=== PATIENT | male | born 1965 | race African-American/Black ===

== ENCOUNTER 2024-08-04 12:22 | Inpatient (IN) | payer OTHER ==
[2024-08-04 13:31] VITALS: BMI 24.0
[2024-08-04] MEDS ORDERED: ONDANSETRON *ODT* 4 MG TABLET SL PRN (14:20)
[2024-08-04] MEDS ORDERED: MAG HYDROX/AL HYDROX/SIMETH 30 ML UNIT-DOSE CUP PO PRN (14:20)
[2024-08-04] MEDS ORDERED: NALOXONE HCL 0.4 MG/ML VIAL IM PRN (14:20)
[2024-08-04] MEDS ORDERED: LOPERAMIDE HCL 2 MG CAPSULE PO PRN (14:20)
[2024-08-04] MEDS ORDERED: NALOXONE (NARCAN) HCL 4 MG/0.1 ML SPRAY NS PRN (14:20)
[2024-08-04] MEDS ORDERED: guaiFENesin 600 MG TABLET.ER (FP) PO PRN (14:20)
[2024-08-04] MEDS ORDERED: BENZONATATE 200 MG CAPSULE PO PRN (14:20)
[2024-08-04] MEDS ORDERED: BISMUTH SUBSALICYLATE 524 MG/30 ML PO PRN (14:20)
[2024-08-04] MEDS ORDERED: BENZOCAINE/MENTHOL (CHLORASEPTIC ) LOZENGE MM PRN (14:20)
[2024-08-04] MEDS ORDERED: hydrOXYzine PAMOATE 25 MG CAPSULE (FP) PO PRN (14:20)
[2024-08-04] MEDS ORDERED: DICYCLOMINE HCL 10 MG CAPSULE PO PRN (14:20)
[2024-08-04] MEDS ORDERED: POLYETHYLENE GLYCOL (HEALTHYLAX) 3350 17 GM PACKET PO PRN (14:20)
[2024-08-04] MEDS ORDERED: IBUPROFEN 400 MG TABLET (FP) PO PRN (14:20)
[2024-08-04] MEDS ORDERED: MAGNESIUM HYDROX 2400MG/30ML ORAL SUSPENSION 30 ML CUP PO PRN (14:20)
[2024-08-04] MEDS: PRENATAL VITAMINS W/ FOLIC ACID TABLET (FP) PO SCH (15:43)
[2024-08-04] MEDS: IBUPROFEN 600 MG TABLET (FP) PO PRN (17:54)
[2024-08-04] MEDS: MELATONIN 5 MG TABLETS PO SCH (22:35)
[2024-08-04] MEDS: METHOCARBAMOL 500 MG TABLET PO PRN (22:35)
[2024-08-04] MEDS: THIAMINE 100 MG TABLET PO SCH (22:35)
[2024-08-05] MEDS ORDERED: metFORMIN HCL 500 MG TABLET (FP) PO SCH (10:00)
[2024-08-05] MEDS: amLODIPine BESYLATE 5 MG TABLET (FP) PO SCH (10:30)
[2024-08-05] MEDS: LISINOPRIL 10 MG TABLET PO SCH (10:30)
[2024-08-05] MEDS: FOLIC ACID 1 MG TABLET (FP) PO SCH (10:30)
[2024-08-05] MEDS: PANTOPRAZOLE 40 MG TABLET PO SCH (11:10)
[2024-08-05 12:17] LABS: HEMATOCRIT 31.4 % (35.4-49); HEMOGLOBIN 10.8 GM/dL (11.7-16.9); MCHC 34.3 g/dl (32.0-35.9); MEAN CELL VOLUME 87.7 fl (80-96); MEAN PLT VOLUME 7.9 fl (7.5-11.1); PLATELET COUNT 435 10^3/uL (134-434); RBC 3.58 M/mm3 (4.00-5.60); RDW 14.7 % (11.9-15.9); WHITE BLOOD COUNT 5.1 K/mm3 (4.0-10.0)
[2024-08-05 13:13] LABS: CHLORIDE 105 mmol/L (98-107); POTASSIUM 3.4 mmol/L (3.5-5.1); SODIUM 142 mmol/L (136-145)
[2024-08-05 13:18] LABS: CALCIUM 8.1 mg/dL (8.5-10.1)
[2024-08-05 13:20] LABS: ANION GAP 10 mmol/L (4-13); BLOOD UREA NITROGEN 17.2 mg/dL (7-18); CO2 27 mmol/L (21-32); GLUCOSE,RANDOM 126 mg/dL (74-106)
[2024-08-05 13:22] LABS: CREATININE 1.3 mg/dL (0.55-1.3); SGPT/ALT 68 U/L (13-61)
[2024-08-05 13:23] LABS: SGOT/AST 135 U/L (15-37)
[2024-08-05 13:24] LABS: BILIRUBIN,TOTAL 1.8 mg/dL (0.2-1); TOT PROT 7.3 g/dl (6.4-8.2)
[2024-08-05 13:25] LABS: ALK PHOS 458 U/L (45-117)
[2024-08-05] MEDS: GABAPENTIN 300 MG CAPSULE PO SCH (13:40)
[2024-08-05] MEDS: metFORMIN HCL 500 MG TABLET (FP) PO SCH (17:14)
[2024-08-05] MEDS ORDERED: POTASSIUM CHLORIDE ORAL LIQUID 20 MEQ/15 ML PO ONE (20:00)
[2024-08-05] MEDS ORDERED: PATIENT'S OWN MEDICATION (NON-FORMULARY) (Metronidazole [Metronidazole] 500 MG Tablet) PO SCH (22:00)
[2024-08-05] MEDS ORDERED: CIPROFLOXACIN 500 MG TABLET (RESTRICTED TO ID) PO SCH (22:00)
[2024-08-05] MEDS: TAMSULOSIN HCL 0.4 MG CAP PO SCH (22:09)
[2024-08-05] MEDS: ATORVASTATIN CA 40 MG TABLET (FP) PO SCH (22:10)
[2024-08-05] MEDS: CIPROFLOXACIN 500 MG TABLET (RESTRICTED TO ID) PO SCH (22:11)
[2024-08-05] MEDS: metroNIDAZOLE 500 MG TABLET PO SCH (22:11)
[2024-08-05] MEDS: POTASSIUM CHLORIDE ORAL LIQUID 20 MEQ/15 ML PO ONE (22:13)
[2024-08-06 00:04] LABS: URINE APPEARANCE CLEAR; URINE BILIRUBIN NEGATIVE (NEGATIVE); URINE COLOR YELLOW; URINE GLUCOSE (UA) NEGATIVE (NEGATIVE); URINE KETONE NEGATIVE (NEGATIVE); URINE LEUK ESTERASE NEGATIVE (NEGATIVE); URINE NITRITE NEGATIVE (NEGATIVE); URINE PROTEIN NEGATIVE (NEGATIVE); URINE UROBILINOGEN 0.2 mg/dL (0.2-1.0)
[2024-08-06] MEDS: ACETAMINOPHEN 325 MG TABLET (FP) PO PRN (06:06)
[2024-08-06 09:31] VITALS: TEMP 97.5
[2024-08-06 12:53] VITALS: BP 127/83; PULSE 105; RESP 20
== END 2024-08-06 15:36 | disposition other institution (70) | DRG 775 ==
LOC: YASAS 12:22 → Y3N 15:17
PROVIDERS: ADMIT Allergy & Immunology; ATTEND Family Medicine Addiction Medicine
PROC: HZ2ZZZZ Detoxification Services for Substance Abuse Treatment (ICD-10-PCS; principal; 2024-08-04)
DX: F10.20 Alcohol dependence, uncomplicated (principal); E87.6 Hypokalemia; E78.5 Hyperlipidemia, unspecified; I10 Essential (primary) hypertension; E11.9 Type 2 diabetes mellitus without complications; Z79.84 Long term (current) use of oral hypoglycemic drugs; K70.10 Alcoholic hepatitis without ascites; K21.9 Gastro-esophageal reflux disease without esophagitis; N40.0 Benign prostatic hyperplasia without lower urinary tract symptoms; Z91.81 History of falling; Z80.0 Family history of malignant neoplasm of digestive organs
CPT/HCPCS: 36415; 71046-TC-FY; 80053; 80305; 80307; 81003; 82962; 84132; 85027; 86780; 87811; 93005; 93010

== ENCOUNTER 2024-08-06 15:17 | Inpatient (IN) | payer OTHER ==
[2024-08-06] MEDS ORDERED: NALOXONE HCL 0.4 MG/ML VIAL IVPUSH PRN (16:20)
[2024-08-06] MEDS ORDERED: NICOTINE 14 MG/24 HOURS TOPICAL PATCH TD PRN (16:20)
[2024-08-06] MEDS ORDERED: MAG HYDROX/AL HYDROX/SIMETH 30 ML UNIT-DOSE CUP PO PRN (16:20)
[2024-08-06] MEDS ORDERED: NICOTINE POLACRILEX 4 MG LOZENGE BC PRN (16:20)
[2024-08-06] MEDS ORDERED: METHOCARBAMOL 500 MG TABLET PO PRN (16:20)
[2024-08-06] MEDS ORDERED: ACETAMINOPHEN 325 MG TABLET (FP) PO PRN (16:20)
[2024-08-06] MEDS ORDERED: hydrOXYzine PAMOATE 25 MG CAPSULE (FP) PO PRN (16:20)
[2024-08-06] MEDS ORDERED: BENZONATATE 200 MG CAPSULE PO PRN (16:20)
[2024-08-06] MEDS ORDERED: MAGNESIUM HYDROX 2400MG/30ML ORAL SUSPENSION 30 ML CUP PO PRN (16:20)
[2024-08-06] MEDS ORDERED: LOPERAMIDE HCL 2 MG CAPSULE PO PRN (16:20)
[2024-08-06] MEDS ORDERED: NALOXONE (NARCAN) HCL 4 MG/0.1 ML SPRAY NS PRN (16:20)
[2024-08-06] MEDS ORDERED: BENZOCAINE/MENTHOL (CHLORASEPTIC ) LOZENGE MM PRN (16:20)
[2024-08-06] MEDS ORDERED: POLYETHYLENE GLYCOL (HEALTHYLAX) 3350 17 GM PACKET PO PRN (16:20)
[2024-08-06] MEDS ORDERED: guaiFENesin 600 MG TABLET.ER (FP) PO PRN (16:20)
[2024-08-06] MEDS ORDERED: NICOTINE POLACRILEX 4 MG GUM BUC PRN (16:20)
[2024-08-06] MEDS ORDERED: IBUPROFEN 400 MG TABLET (FP) PO PRN (16:20)
[2024-08-06] MEDS: metFORMIN HCL 500 MG TABLET (FP) PO SCH (18:00)
[2024-08-06] MEDS: THIAMINE 100 MG TABLET PO SCH (21:03)
[2024-08-06] MEDS: GABAPENTIN 300 MG CAPSULE PO SCH (21:03)
[2024-08-06] MEDS: ATORVASTATIN CA 40 MG TABLET (FP) PO SCH (21:03)
[2024-08-06] MEDS: metroNIDAZOLE 500 MG TABLET PO SCH (21:03)
[2024-08-06] MEDS: MELATONIN 5 MG TABLETS PO SCH (21:03)
[2024-08-06] MEDS: TAMSULOSIN HCL 0.4 MG CAP PO SCH (21:03)
[2024-08-07] MEDS: PRENATAL VITAMINS W/ FOLIC ACID TABLET (FP) PO SCH (10:11)
[2024-08-07] MEDS: PANTOPRAZOLE 40 MG TABLET PO SCH (10:12)
[2024-08-07] MEDS: CHOLECALCIFEROL (VIT D3) 1,000 UNIT (25 MCG) TABLET PO SCH (10:12)
[2024-08-07] MEDS: amLODIPine BESYLATE 5 MG TABLET (FP) PO SCH (10:12)
[2024-08-07] MEDS: PNEUMOC 20-VAL CONJ-DIP CRM/PF 0.5 ML SYRINGE IM ONE (11:29)
[2024-08-07 13:01] LABS: HIV INTERPRETATION NEGATIVE (NEGATIVE)
[2024-08-07] MEDS: IBUPROFEN 600 MG TABLET (FP) PO PRN (14:13)
[2024-08-10] MEDS: SUVOREXANT 5 MG TABLET PO PRN (21:33)
[2024-08-10] MEDS: RIFAXIMIN 550 MG TABLET PO SCH (21:42)
[2024-08-12] MEDS ORDERED: INSULIN ASPART SLIDING SCALE (NOVOLOG) 1 VIAL SQ ONE (16:42)
[2024-08-12] MEDS: TAMSULOSIN HCL 0.4 MG CAP PO SCH (21:38)
[2024-08-12] MEDS: SUVOREXANT 10 MG TABLET PO PRN (21:39)
[2024-08-13] MEDS: HEPATITIS A VIRUS VACCINE/PF 1440 UNIT/1 ML IM ONE (15:23)
[2024-08-17 08:55] VITALS: RESP 18
[2024-08-17 11:24] LABS: INR 1.17 (0.83-1.09); PROTHROMBIN TIME (PATIENT) 13.2 SEC (9.7-13.0)
[2024-08-17 13:13] LABS: POTASSIUM 4.3 mmol/L (3.5-5.1)
[2024-08-17 13:14] LABS: CHLORIDE 104 mmol/L (98-107); SODIUM 139 mmol/L (136-145)
[2024-08-17 13:19] LABS: ALBUMIN 3.2 g/dl (3.4-5.0); ANION GAP 8 mmol/L (4-13); BLOOD UREA NITROGEN 15.7 mg/dL (7-18); CALCIUM 8.3 mg/dL (8.5-10.1); CO2 28 mmol/L (21-32)
[2024-08-17 13:20] LABS: GLUCOSE,RANDOM 99 mg/dL (74-106)
[2024-08-17 13:21] LABS: MAGNESIUM 0.9 mg/dL (1.8-2.4)
[2024-08-17 13:22] LABS: CREATININE 1.1 mg/dL (0.55-1.3); SGOT/AST 31 U/L (15-37); SGPT/ALT 26 U/L (13-61)
[2024-08-17 13:28] LABS: ALK PHOS 200 U/L (45-117)
[2024-08-17] MEDS: MAGNESIUM OXIDE 400 MG TABLET (FP) PO ONE (18:25)
[2024-08-18 06:56] VITALS: TEMP 98.2
[2024-08-18] MEDS: MAGNESIUM OXIDE 400 MG TABLET (FP) PO SCH (09:06)
[2024-08-18 10:39] VITALS: BP 117/69; PULSE 123
== END 2024-08-18 09:10 | disposition home or self-care (01) | DRG 772 ==
LOC: YASAS 15:17 → Y3W 15:20
PROVIDERS: ADMIT Psychiatry & Neurology Pain Medicine; ATTEND Psychiatry & Neurology Pain Medicine
PROC: HZ42ZZZ Group Counseling for Substance Abuse Treatment, Cognitive-Behavioral (ICD-10-PCS; principal; 2024-08-06)
DX: F10.20 Alcohol dependence, uncomplicated (principal); E72.20 Disorder of urea cycle metabolism, unspecified; G47.00 Insomnia, unspecified; I10 Essential (primary) hypertension; K70.10 Alcoholic hepatitis without ascites; E11.9 Type 2 diabetes mellitus without complications; Z79.84 Long term (current) use of oral hypoglycemic drugs; N40.0 Benign prostatic hyperplasia without lower urinary tract symptoms; Z91.81 History of falling
CPT/HCPCS: 36415; 80053; 82140; 82652; 82962; 83735; 85610; 86803; 87389; 90632; 90677; G0009